=== PATIENT | female | born 1970 | race Caucasian/White ===

== ENCOUNTER 2018-05-31 11:25 | Emergency (ER) | payer OTHER ==
[~2018-05-31] VITALS: Ht 162.6 cm; Wt 56.7 kg
[2018-05-31 11:40] VITALS: BP 136/97
--- NOTE | 2018-05-31 11:42 | ED NECK/BACK PAIN COMPLAINT ---
History of Present Illness General Chief Complaint: General Adult Stated Complaint: SCIATICA Source: patient Exam Limitations: no limitations Vital Signs & Intake/Output Vital Signs & Intake/Output ED Intake and Output 06/01 0000 05/31 1200 Intake Total Output Total Balance Patient 125 lb Weight Weight Reported by Patient Measurement Method Allergies Coded Allergies: NO KNOWN ALLERGIES (04/02/11) Triage Nurses Notes Reviewed? yes Onset: Gradual Duration: week(s): Timing: recent history Quality/Severity: severe Location: lumbar spine Radiation: lower legs Loss of Consciousness: no loss of consciousness HPI: 47yo female presents to ED complaining of "sciatic nerve" pain x 1 month. PAtient states her pain has been present, worse in the morning when she wakes up , for 1 month. Pain radiates down from left buttocks to left lower legs. Patient has associated intermittent paresthesias radiating down left leg. Patient reports history of a degenerative disc disease detected on c-spine MRI ordered by her PCP, Dr. Badillo. The patient has not seen a neurosurgery specialist yet. Patient states she is here for an "anti-inflammatiory medication. The patient denies trauma or injury prior to onset of symptoms, saddle anesthesia, urinary incontinence. (Cherelle Duckworth) Past History Travel History Traveled to [place] past 21 day No Medical History Any Pertinent Medical History? none Surgical History Surgical History: non-contributory Psychosocial History Who do you live with Spouse What is your primary language Uzbek Family History Hx Contributory? No (Cherelle Duckworth) Review of Systems Review of Systems Constitutional: Reports: no symptoms. Musculoskeletal: Reports: see HPI. Neurological/Psychological: Reports: see HPI. (Cherelle Duckworth) Physical Exam Physical Exam General Appearance: well developed/nourished, no apparent distress, alert, awake Head: atraumatic, normal appearance Eyes: Bilateral: normal appearance. Ears, Nose, Throat, Mouth: hearing grossly normal Neck: did not examine Respiratory: no respiratory distress Neurologic/Psych: awake, alert, oriented x 3, normal gait Comments: Patient left prior to full physical exam however brief exam performed in triage Core Measures CVA/TIA Diagnosis: No (Cherelle Duckworth) Progress Differential Diagnosis: cauda equina syn, herniated disc, myofascial strain, sciatica, spinal cord inj, T/L spine injury Plan of Care: Patient has already had recent MRIs of her cervical spine. She may require MRI of lumbar spine. I saw and evaluated the patient in triage however I did not complete a full physical examination. The patient left the emergency department prior to completion of evalution/treatment/plan. (Marianela CAIN,Cherelle Berry) Departure Departure Disposition: LEFT AGAINST MEDICAL ADVICE Condition: Stable Clinical Impression Primary Impression: Sciatica Qualifiers: Laterality: unspecified laterality Qualified Code: M54.30 - Sciatica, unspecified side Referrals: Austin Badillo MD (PCP/Family) Departure Forms: Customer Survey General Discharge Information (Cherelle Duckworth) PA/MANAGER CAREER Co-Sign Statement Statement: ED Attending supervision documentation- [] I saw and evaluated the patient. I have also reviewed all the pertinent lab results and diagnostic results. I agree with the findings and the plan of care as documented in the PA's/MANAGER CAREER's documentation. [x] I have reviewed the ED Record and agree with the PA's/MANAGER CAREER's documentation. [] Additions or exceptions (if any) to the PAs/MANAGER CAREER's note and plan are summarized below: [] (Gordon Arias DO
== END 2018-05-31 12:56 | disposition left against medical advice (07) ==
LOC: ERH 11:25
DX: M54.32 Sciatica, left side (principal)